=== PATIENT | female | born 1980 | race Caucasian/White ===

== ENCOUNTER 2018-12-05 08:51 | Emergency (ER) | payer OTHER ==
[2018-12-05 11:21] VITALS: BMI 28.5
[2018-12-05 15:47] VITALS: BP 108/72; PULSE 81; RESP 18; TEMP 97.8; O2SAT 100
--- NOTE | 2018-12-05 17:37 | OBHP ---
Datetime: 12/05/2018 17:29 IP Adm Impression: Term, intrauterine ; No Active Labor; Intact Membranes IP Admit Plan: Observation/Evaluation; Discharge home Admit Comment, IP Provider: Patient is a 38-year-old 1 para 0 estimated due date November 30 estimated gestational age 40+ week patient presents to labor and delivery complaining of back dis comfort and cramps and bloody vaginal discharge. Patient's care is significant for vaginism us and history of herpes simplex virus. Currently taking Valtrex. Past medical history herpes Medications Valtrex and vitamins Social history denies alcohol tobacco use Obstetrical history patient has history of vaginismus unable to tolerate pelvic exam. Review of systems patient denies headache chest pain shortness of breath palpitations nausea vomit ing diarrhea vaginal bleeding heat or cold intolerance easy bruisability musculoskeletal or neurologi tacho complaints Vital signs stable afebrile Physical exam patient unable to tolerate speculum exam patient given the opportunity to insert spe culum and was unable to do so. Sonogram adequate fluid Intrauterine at 40+ weeks history of vaginismus. Patient has biophysical profile scheduled today at 2:00 at [facility] patient will follow up with PMD for scheduled induction of labor. Patient was counseled regarding primary operative delivery. Versus trial of labor. After thorough discussion patient would like to try labor. Patient to follow -up with PMD this week labor precautions provided Pelvic Type - PN: Adequate Extremities - PN: Normal Abdomen - PN: Not Done Back - PN: Not Done Breast - PN: Not Done Lungs - PN: Normal Heart - PN: Normal Thyroid - PN: Normal Neurologic - PN: Normal HEENT - PN: Normal General - PN: Normal Presentation-Admit: Vertex FHR - Baseline A Provider: 150 Gestation - Est Wks by US: 40.0 EGA AdmitDate IP: 40.5 Vital Signs Provider: Reviewed IP Chief Complaint: Uterine contractions NICHD Variability Prov Fetus A: Moderate 6-25bpm NICHD Accel Fetus A IP Provider: 15X15 FHR Category Provider Fetus A: Category I NICHD Decel Fetus A IP Provider: None Genitourinary Exam: Not Done DTRs - PN: Normal
[2018-12-05] MEDS ORDERED: Lactated Ringer's 1,000 ML IV ONE (23:27)
[2018-12-05] MEDS ORDERED: Lactated Ringer's 1,000 ML IV SCH (23:30)
[2018-12-05] MEDS ORDERED: Oxytocin 30 UNIT in NS 500 ml 30 UNITS/500 ML BAG IV ONE (23:33)
[2018-12-05] MEDS ORDERED: OXYTOCIN/0.9 % NS 20 UNIT/1,000 ML BAG IV SCH (23:45)
== END 2018-12-05 10:38 | disposition home or self-care (01) ==
LOC: H.EROB2 08:51
DX: O26.93 Pregnancy related conditions, unspecified, third trimester (principal); M54.9 Dorsalgia, unspecified; O26.853 Spotting complicating pregnancy, third trimester; O48.0 Post-term pregnancy; Z3A.40 40 weeks gestation of pregnancy

== ENCOUNTER 2018-12-05 22:37 | Inpatient (IN) | payer OTHER ==
[2018-12-05 11:21] VITALS: BMI 28.5
[2018-12-05] MEDS ORDERED: Oxytocin 30 UNIT in NS 500 ml 30 UNITS/500 ML BAG IV ONE (23:45)
[2018-12-05] MEDS ORDERED: OXYTOCIN/0.9 % NS 20 UNIT/1,000 ML BAG IV SCH (23:45)
[2018-12-05] MEDS ORDERED: Lactated Ringer's 1,000 ML IV ONE (23:45)
[2018-12-06 00:02] LABS: BASO % 0.1 % (0.0-2.0); HEMOGLOBIN 12.4 g/dL (12.0-16.0); LYMPH % 11.5 % (20.0-40.0); MEAN CELL VOLUME 85.5 fl (81.0-99.0); MEAN CORPUSCULAR HEMOGLOBIN 28.2 pg (27.0-31.0); MEAN PLATELET VOLUME 10.6 fl (7.2-11.7); MONO # 0.3 K/uL (0.0-0.8); MONO % 3.9 % (0.0-10.0); NEUT # 7.6 K/uL (1.8-7.0); NEUT % 84.5 % (50.0-75.0); RBC 4.38 Mil/uL (3.80-5.20); RED CELL DISTRIBUTION WIDTH 18.3 % (11.5-14.5)
[2018-12-06] MEDS: Lactated Ringer's 1,000 ML IV SCH ×12 (00:10→11:00)
[2018-12-06] MEDS ORDERED: Bupivacaine HCl 0.5% PF (30 ml) Inj ONE ×2 (00:31→10:01)
[2018-12-06] MEDS ORDERED: Fentanyl/Bupivacaine HCl 250 ML EPI ONE (00:32)
[2018-12-06 03:00] VITALS: PULSE 97; O2SAT 98
[2018-12-06] MEDS ORDERED: Lactated Ringer's 1,000 ML IV SCH ×5 (07:00→09:30)
[2018-12-06] MEDS ORDERED: Oxytocin 30 UNIT in NS 500 ml 30 UNITS/500 ML BAG IV ONE ×4 (07:15→17:46)
[2018-12-06] MEDS ORDERED: OXYTOCIN/0.9 % NS 20 UNIT/1,000 ML BAG IV SCH ×2 (09:30→18:00)
[2018-12-06] MEDS ORDERED: Lactated Ringer's 1,000 ML IV ONE ×3 (09:33→18:26)
--- NOTE | 2018-12-06 11:23 | OBPN ---
Datetime: 12/06/2018 11:15 IP Progress Impression: Normal progression of labor IP Procedures: Sterile Vag Exam IP Progress Plan: Continue present management Membranes, Provider: Ruptured Amniotic Fluid Color, Provider: Clear Contraction Comments Provider: Q3-5 FHR - Baseline A Provider: 120's IP Progress Note Comment: 38 yo G1 at 40+6 wks now complete Will start pushing soon FHT reassuring, GBS negative Vital Signs Provider: Reviewed NICHD Accel Fetus A IP Provider: 15X15 FHR Category Provider Fetus A: Category II NICHD Variability Prov Fetus A: Moderate 6-25bpm Dilatation, Provider: 10 Effacement, Provider: 100 Station, Provider: 1 NICHD Decel Fetus A IP Provider: Variable Datetime: 12/05/2018 23:19 Gestation - Est Wks by US: 40.5 Presentation-Admit: Vertex
[2018-12-06] MEDS ORDERED: ceFAZolin 2 GM in Sodium Chloride 0.9% 100 ML IVPB ONE (14:06)
[2018-12-06] MEDS ORDERED: Azithromycin 500 MG in Sodium Chloride 0.9% 250 ML IVPB ONE (14:07)
[2018-12-06] MEDS ORDERED: Morphine 5 mg/10 ml preservative-free Inj(Duramorph) ONE (14:25)
[2018-12-06] MEDS ORDERED: Midazolam 2 MG/2 ML VIAL ONE (15:27)
--- NOTE | 2018-12-06 16:26 | OBDS ---
DELIVERY PERSONNEL Delivery Doctor: Dr. Oliveira Scrub Nurse: Marni Yanes Valve Mechanic: Marion Whaley RN; Elizabeth Hills RN Anesthesiologist: Dr. John MATERNAL INFORMATION Delivery Anesthesia: Spinal Medications in Delivery: Ancef 2g, Azithromycin 500mg Placenta Cultured: No Maternal Complications: None Provider Comments: Pre-op dx: 38 yo G1 at 40+6 wks requesting cesrean section in second stage of la bor Post-op dx: Same Procedure: Primary low transverse cesaran section Surgeon: Roxanne Firewall Engineer: Dr. Sarah Stanley, OB fellow Anesthesologist: Drs. John and Geronimo Anesthesia: Epidural Findings: Viable male delivered through clear fluid in cephalic presentation at 1504, s 9 and 9. Wt 7#13, 3530gms. 7cm fibroid at the posterior left fundus, nl appearing tubes and ovari es. Complications: None EBL: 800mL LABOR SUMMARY EDC: 11/30/2018 00:00 No. Babies in Womb: 1 Attempted: No Labor Anesthesia: Intrathecal LABOR INFORMATION Reason for Induction: Not Applicable Onset of Labor: 12/05/2018 04:00 (Annotations: pt stated ctx started at 0400 ) Complete Dilatation: 12/06/2018 11:08 Oxytocin: N/A Group B Beta Strep: Negative Antibiotics # of Doses: 2 Steroids Given: None Reason Steroids Not Administered: Not Applicable MEMBRANES Membranes Rupture Method: Spontaneous Rupture of Membranes: 12/06/2018 03:40 Length of Rupture (hrs): 11.40 Amniotic Fluid Color: Clear Amniotic Fluid Amount: Small Amniotic Fluid Odor: Normal STAGES OF LABOR Stage 1 hrs: 31 Stage 1 min: 8 Stage 2 hrs: 3 Stage 2 min: 56 Stage 3 hrs: 0 Stage 3 min: 1 Total Time in Labor hrs: 35 Total Time in Labor min: 5 VAGINAL DELIVERY Episiotomy: None Laceration Extension: N/A Laceration Type: None Laceration Repair: Not Applicable Sharps Count Correct: Yes CSECTION DELIVERY Primary Indication: Labor/Maternal Exhaustion Secondary Indication: N/A CSection Urgency: Elective CSection Incidence: Primary Labor: Labor Elective: Elective CSection Incision: Lower Uterine Transverse BABY A INFORMATION Infant Delivery Date/Time: 12/06/2018 15:04 Method of Delivery: Born in Route : No : N/A Forceps: N/A Vacuum Extraction: N/A Shoulder Dystocia : No SHOULDER DYSTOCIA BABY A Infant Delivery Date/Time: 12/06/2018 15:04 PRESENTATION/POSITION BABY A Breech Presentation: N/A PLACENTA INFORMATION BABY A Placenta Delivery Time : 12/06/2018 15:05 Placenta Method of Delivery: Manual Removal Placenta Status: Delivered SCORES BABY A Heart Rate 1 min: >100 bpm Resp Effort 1 min: Good Cry Reflex Irritability 1 min: Cough or Sneeze or Pulls Away Muscle Tone 1 min: Active Motion Color 1 min: Body Nazlini, Extremities Blue Resuscitation Effort 1 min: Tactile Stimulation SCORE 1 MIN: 9 Heart Rate 5 min: >100 bpm Resp Effort 5 min: Good Cry Reflex Irritability 5 min: Cough or Sneeze or Pulls Away Muscle Tone 5 min: Active Motion Color 5 min: Body Nazlini, Extremities Blue Resuscitation Effort 5 min: N/A SCORE 5 MIN: 9 INFANT INFORMATION BABY A Gestational Age at Delivery: 40.6 Gestational Status: Term Outcome : Liveborn Condition : Stable Sex: Male WEIGHT/LENGTH BABY A Birthweight (gms): 3530 Infant Weight (lb): 7 Weight (oz): 12 Infant Length Inches: 20.80 Infant Length cms: 52.8 CORD INFORMATION BABY A No. Cord Vessels: 3 Nuchal Cord : N/A Cord Blood Taken: Yes Infant Suction: None ASSESSMENT BABY A Infant Complications: None Physical Findings at Delivery: Within Normal Limits Respirations: Appears Normal Property Valuer/ALS Called : No Infant Care By: Paige JIMENEZ Transferred To: Remains with Mother
[2018-12-06] MEDS ORDERED: Oxycodone/Acetaminophen 5/325 mg Tab PO PRN ×3 (17:54→18:26)
--- NOTE | 2018-12-06 22:03 | OBPN ---
Datetime: 12/06/2018 14:20 IP Informed Consent Obtain: Section Delivery Contraction Comments Provider: Q3-4 min FHR - Baseline A Provider: 140 Gestation - Est Wks by US: 40.6 Presentation-Admit: Vertex IP Progress Note Comment: Patient has now been pushing for approximately 1 hr total. While there has been some decent the patient is now experiencing significant pain and has requested a primary . The risks/benefits/alternatives were discussed with the patient for approximately 30min, i ncluding risk of damage to surrounding structures, risk of uterine extensions due to station an d slightly higher risk of morbidity with delivery. The patient expressed understand ing and would still like to proceed to . - 2g Ancef to be given - Additional 500mg azithromycin d/t rupture of membranes - Peds will be in attendance Plan discussed with attending, Dr. Roxanne Stanley MD OB Fellow Vital Signs Provider: Reviewed; Within Normal Limits NICHD Accel Fetus A IP Provider: 15X15 FHR Category Provider Fetus A: Category II NICHD Variability Prov Fetus A: Moderate 6-25bpm Dilatation, Provider: 10 Station, Provider: 0 NICHD Decel Fetus A IP Provider: Variable
--- NOTE | 2018-12-07 04:26 | OP ---
PROCEDURE DATE: 12/06/2018 PREOPERATIVE DIAGNOSIS: A 38-year-old G1 at 40 weeks and 6 days requesting a section in the second stage of labor. POSTOPERATIVE DIAGNOSIS: A 38-year-old G1 at 40 weeks and 6 days requesting a section in the second stage of labor. PROCEDURE: Primary low-transverse section. SURGEON: Ophelia Oliveira MD. INTERIOR DESIGN PROGRAM CHAIR: Dr. Sarah Stanley, OB fellow. ANESTHESIOLOGIST: Najma John MD and Lefty Melton MD TYPE OF ANESTHESIA: Epidural. FINDINGS: A viable male delivered through clear fluid and cephalic presentation at 15:04. Apgars 9 and 9 at one and five minutes respectively. The weight was 7 pounds 13 ounces or 3530 g. There was a 7 cm fibroid located at the posterior left fundus. Normal appearing tubes and ovaries. COMPLICATIONS: None. ESTIMATED BLOOD LOSS: About 800 mL. DESCRIPTION OF PROCEDURE: The patient was taken to the operating room and the epidural had been bolused. She was then prepped and draped in the normal sterile fashion in the dorsal supine position with a leftward tilt. A Earl had been placed in her bladder. A time-out was done. The epidural was tested and found to be adequate. A Pfannenstiel skin incision was then made with the scalpel and carried through to the underlying layer of fascia with the scalpel. The fascia was incised in the midline. The incision was extended laterally with blunt dissection. The inferior aspect of the fascial incision was then grasped with Gabe clamps, elevated, and the underlying rectus muscles were dissected off bluntly. Attention was then turned to the superior aspect of this incision, which in a similar fashion was grasped, tented up with Gabe clamps and the rectus muscle was dissected off bluntly. The rectus muscles were then in the midline. The peritoneum was entered digitally. The peritoneal incision was then extended superiorly and inferiorly with good visualization of the bladder. The bladder blade was then reinserted and the vesicouterine peritoneum was identified, grasped with the pickups and entered sharply with Metzenbaum scissors. This incision was then extended laterally and the bladder flap was created digitally. The bladder blade was then reinserted and the lower uterine segment was incised in a transverse fashion with the scalpel. The uterine incision was then extended digitally. The bladder blade was removed and the infant's head delivered atraumatically. After delayed cord clamping, the cord was clamped and cut. The infant was handed off to the awaiting lokie driver. Cord blood was collected. The placenta was then delivered and the uterus was massaged. The uterus was then exteriorized and cleared of all clots and debris with a dry sponge curettage. There was noted to be a small midline extension, which was repaired with 0 Vicryl in a running locked fashion. The uterine incision was then repaired with 0 Vicryl in a running locked fashion. A second layer of the same suture was used in an imbricating fashion to reinforce the incision for hemostasis. There was then a single interrupted stitch placed at the left side of the incision for hemostasis. The abdomen was then well irrigated. The uterus was returned to the abdomen. The uterine incision was reexamined and found to be hemostatic. The gutters were cleared of all clots. The peritoneum was then closed with running stitch of 2-0 chromic. The muscle was then closed with a running stitch of 0 chromic. The fascia was then reapproximated with 0 Vicryl in a running fashion. The Bovie was applied to small bleeders. Interrupted stitches of 2-0 plain gut were placed to close the space of the fat. The skin was then closed in a subcuticular fashion with 3-0 Biosyn on a Adriano needle. The patient tolerated the procedure well. Sponge, lap, and needle counts were correct. The patient received 2 g of Ancef and 500 mg of IV azithromycin prior to the procedure. The patient was taken to the recovery room in stable condition. Ophelia Oliveira MD MTDRobin
[2018-12-07 06:51] LABS: MEAN CELL VOLUME 87.2 fl (81.0-99.0); MEAN CORPUSCULAR HEMOGLOBIN 29.1 pg (27.0-31.0); MEAN CORPUSCULAR HGB CONC 33.3 g/dL (33.0-37.0); RBC 3.3 Mil/uL (3.80-5.20); RED CELL DISTRIBUTION WIDTH 18.5 % (11.5-14.5); WHITE BLOOD COUNT 10.8 K/uL (4.8-10.8)
[2018-12-07 06:59] LABS: HEMOGLOBIN 9.6 g/dL (12.0-16.0)
[2018-12-07] MEDS: Oxycodone/Acetaminophen 5/325 mg Tab PO PRN ×2 (08:35→13:45)
[2018-12-07] MEDS: Multivitamin With Minerals Tab PO SCH (08:36)
[2018-12-07] MEDS ORDERED: Multivitamin With Minerals Tab PO SCH (09:00)
[2018-12-08] MEDS: Oxycodone/Acetaminophen 5/325 mg Tab PO PRN (10:06)
[2018-12-08] MEDS: Multivitamin With Minerals Tab PO SCH (10:08)
--- NOTE | 2018-12-08 10:47 | OBPPN ---
Datetime: 12/08/2018 10:44 PP Pain Prov: Within normal limits PP Nausea Prov: Denies PP Flatus Prov: Yes PP Breasts Prov: Normal PP Heart Prov: Normal PP Lungs Prov: Normal PP Abdomen/Uterus Prov: Normal PP Lochia Prov: Normal PP Vulva/Perineum Prov: Normal PP CVA Tenderness Prov: Normal PP Extremities Prov: Normal PP Comments Phys Exam Prov: Fundus firm under umblicus Incision clean/dry/intact PP Impression Prov: Normal progression PP Plan Prov: Continue present management PP Progress Note Prov: Patient denies CP, no SOB, no N/V, tolerating Po diet, ambulating/voiding wel l, mild lochia, abdominal pain tolerable with meds A/P POD #2 1. Continue routine post op orders 2. Percocet/Motrin prn pain 3. Encourage ambulation/ IP PP Procedures: None Vital Signs Provider PP: Reviewed; Within Normal Limits
[2018-12-09] MEDS: Oxycodone/Acetaminophen 5/325 mg Tab PO PRN ×2 (00:58→08:56)
--- NOTE | 2018-12-09 10:12 | OBPPN ---
Datetime: 12/09/2018 10:07 PP Pain Prov: Within normal limits PP Nausea Prov: Denies PP Flatus Prov: Yes PP Breasts Prov: Normal PP Heart Prov: Normal PP Lungs Prov: Normal PP Abdomen/Uterus Prov: Normal PP Lochia Prov: Normal PP Vulva/Perineum Prov: Normal PP CVA Tenderness Prov: Normal PP Extremities Prov: Normal PP Comments Phys Exam Prov: Fundus firm under umbilicus Incision clean/dry/intact PP Impression Prov: Normal progression PP Plan Prov: Continue present management PP Progress Note Prov: Patient deneis CP, no sob, no n/V, tolerating PO diet, ambulating/voiding wel l, +flatus, abdominal pain tolerable with meds, mild lochia A/P POD #3 1. Discharge home 2. Discharge instructions reviewed IP PP Procedures: None Vital Signs Provider PP: Reviewed; Within Normal Limits
--- NOTE | 2018-12-09 10:12 | OBDCSUM ---
Datetime: 12/09/2018 07:16 Discharged to, Provider: Home Follow up at, Provider: OB Disch Instr Activity: Normal activity; May be up for meals; May Shower Disch Instr Diet: Regular Discharge Diet restrict Prov: none Discharge Instructions, Provider: Routine instructions given Discharge Diagnosis, Provider: Term Delivered Discharge Time: 12/09/2018 10:08 Follow up in weeks, Provider: 1 week incision check up , 4-6 weeks checkup Disch Referrals: None Contraception discussed, Prov: No Disch Activity Restrictions: Minimize stair-climbing; No sexual activity; Nothing in vagina - Interc ourse, tampons, douche
[2018-12-09 19:27] VITALS: BP 139/82; RESP 20; TEMP 97.8
== END 2018-12-09 14:25 | disposition home or self-care (01) | DRG 787 ==
LOC: H.EROB2 22:37 → H.L&D 23:45 → H.OB/GYN 12-06 19:40 → UNDODISIN 12-09 12:45
PROVIDERS: ADMIT Obstetrics & Gynecology Gynecology; ATTEND Obstetrics & Gynecology Gynecology
PROC: 4A1HXCZ Monitoring of Products of Conception, Cardiac Rate, External Approach (ICD-10-PCS; 2018-12-05)
PROC: 10D00Z1 Extraction of Products of Conception, Low, Open Approach (ICD-10-PCS; principal; 2018-12-06)
DX: O75.81 Maternal exhaustion complicating labor and delivery (principal); O98.52 Other viral diseases complicating childbirth; O99.02 Anemia complicating childbirth; Z79.899 Other long term (current) drug therapy; Z3A.40 40 weeks gestation of pregnancy; Z37.0 Single live birth